=== PATIENT | male | born 1965 | race Caucasian/White ===

== ENCOUNTER 2016-11-06 11:43 | Emergency (ER) | payer OTHER ==
[2016-11-06 11:50] VITALS: BP 134/73; PULSE 73; RESP 18
[2016-11-06 12:12] VITALS: TEMP 98; O2SAT 98
--- NOTE | 2016-11-06 12:32 | ED PDOC ---
Lower Extremity Pain/Injury Time Seen by Provider: 11/06/16 12:16 Chief Complaint (Nursing): Lower Extremity Problem/Injury Chief Complaint (Provider): Lower Extremity Problem/Injury History Per: Patient History/Exam Limitations: no limitations Onset/Duration Of Symptoms: Days (x1 day) Current Symptoms Are (Timing): Still Present Additional Complaint(s): 51 y/o male presents to the emergency department with a complaint of a right knee pain after playing soccer yesterday, 11/05/2016. Denies any further medical complaints. Past Medical History Reviewed: Historical Data, Nursing Documentation, Vital Signs Vital Signs: Last Vital Signs Temp 98 F 11/06/16 12:10 Pulse 73 11/06/16 11:49 Resp 18 11/06/16 12:10 BP 134/73 11/06/16 11:49 Pulse Ox 98 11/06/16 12:10 - Medical History PMH: No Chronic Diseases - Surgical History Surgical History: No Surg Hx - Family History Family History: States: Unknown Family Hx - Social History Current smoker - smoking cessation education provided: No Alcohol: None Drugs: Denies - Home Medications Home Medications: Ambulatory Orders Medication Instructions Recorded Ibuprofen [Motrin Tab] 800 mg PO Q6H PRN #20 tab 11/06/16 - Allergies Allergies/Adverse Reactions: Allergies Allergy/AdvReac Type Severity Reaction Status Date / Time No Known Allergies Allergy Verified 11/06/16 12:12 Review of Systems ROS Statement: Except As Marked, All Systems Reviewed And Found Negative Musculoskeletal: Positive for: Other (Right knee pain) Physical Exam - Reviewed Nursing Documentation Reviewed: Yes Vital Signs Reviewed: Yes - Physical Exam Appears: Positive for: Non-toxic, No Acute Distress Head Exam: Positive for: ATRAUMATIC, NORMAL INSPECTION, NORMOCEPHALIC Skin: Positive for: Normal Color, Warm, Dry Eye Exam: Positive for: Normal appearance ENT: Positive for: Normal ENT Inspection Neck: Positive for: Normal Respiratory: Negative for: Accessory Muscle Use, Respiratory Distress Extremity: Positive for: Tenderness (Point tenderness to the medial proximal of the tibia ). Negative for: Deformity, Swelling Neurologic/Psych: Positive for: Alert, Oriented - ECG O2 Sat by Pulse Oximetry: 98 (RA) Pulse Ox Interpretation: Normal Medical Decision Making Medical Decision Making: Time: 12:16 Initial Impression: Right Knee Pain Initial Plan: --Knee 3 Views RT (RAD) Stat --Motrin 600 mg PO --Revaluation Pt reports feeling better on re-evaluation. Pt has knee brace on. Ice, elevation, motrin Knee x-ray: No acute fracture or dislocation. Scribe Attestation: Documented by Radha Quijano, acting as a scribe for Alyssa Estevez PA-C. Provider Scribe Attestation: All medical record entries made by the Scribe were at my direction and personally dictated by me. I have reviewed the chart and agree that the record accurately reflects my personal performance of the history, physical exam, medical decision making, and the department course for this patient. I have also personally directed, reviewed, and agree with the discharge instructions and disposition. Disposition - Clinical Impression Clinical Impression: Knee sprain - Patient ED Disposition Is Patient to be Admitted: No Counseled Patient/Family Regarding: Diagnosis, Need For Followup, Rx Given - Disposition Referrals: [facility] [Outside] Sanjeev Lopez III, MD [Staff Provider] - Disposition: Routine/Home Disposition Time: 13:34 Condition: GOOD Prescriptions: Ibuprofen [Motrin Tab] 800 mg PO Q6H PRN #20 tab PRN Reason: Pain Instructions: Knee Sprain (ED)
--- NOTE | 2016-11-06 13:39 | RAD ---
PROCEDURE: Right Knee Radiographs. HISTORY: right knee pain COMPARISON: None. FINDINGS: BONES: Focus of calcification inferior to the patella could be a small avulsion injury. JOINTS: Normal. No osteoarthritis. JOINT EFFUSION: Suprapatellar joint effusion. OTHER FINDINGS: None. IMPRESSION: Focus of calcification inferior to the patella could be a small avulsion injury. Small joint effusion.
== END 2016-11-06 13:48 | disposition home or self-care (01) ==
LOC: H.ER 11:43
DX: S83.91XA Sprain of unspecified site of right knee, initial encounter (principal); X50.9XXA Other and unspecified overexertion or strenuous movements or postures, initial encounter; Y92.322 Soccer field as the place of occurrence of the external cause